=== PATIENT | female | born 1980 | race African-American/Black ===

== ENCOUNTER 2018-01-20 16:21 | Emergency (ER) | payer SELFPAY ==
[~2018-01-20] VITALS: Ht 154.9 cm; Wt 59.0 kg
[2018-01-20] MEDS ORDERED: IBUPROFEN 800MG TABLET PO ONE (17:45)
[2018-01-20] MEDS ORDERED: IBUPROFEN 200MG TABLET ONE (17:46)
[2018-01-20] MEDS ORDERED: ACETAMINOPHEN WITH CODEINE 300/30MG TABLET PO ONE (23:30)
[2018-01-20 23:39] VITALS: BP 109/74
== END 2018-01-21 02:11 | disposition home or self-care (01) ==
LOC: ER 21:38
DX: S92.301A Fracture of unspecified metatarsal bone(s), right foot, initial encounter for closed fracture (principal); M25.571 Pain in right ankle and joints of right foot; F17.200 Nicotine dependence, unspecified, uncomplicated; W22.8XXA Striking against or struck by other objects, initial encounter; Y93.89 Activity, other specified; Y92.89 Other specified places as the place of occurrence of the external cause
CPT/HCPCS: 73610; 73630; 99284